=== PATIENT | female | born 1945 | race Caucasian/White ===

== ENCOUNTER → 2019-04-15 05:00 | Outpatient (REF) | payer MEDICARE, SELFPAY ==
[2019-04-15 07:46] LABS: Hematocrit 41.6 % (37-47); Hemoglobin 13.3 g/dl (12.0-15.0); Mean Corpuscular Hgb 29.8 pg (27.0-32.0); Mean Corpuscular Volume 93.3 fL (81-99); Mean Platelet Vol. 9.6 fl (6.2-12.0); Platelet Count 138 K/mm3 (150-450); RBC Distribution Width CV 12.9 % (11.6-14.6); RBC Distribution Width SD 44.2 fl (35.1-43.9); Red Blood Count 4.46 M/mm3 (4.2-5.4); White Blood Count 4.8 K/mm3 (4.4-11.0)
[2019-04-15 07:52] LABS: Scan Indicated on CBC? Y/N NO
[2019-04-15 07:58] LABS: AST(SGOT) 13 U/L (15-37); Alanine Aminotransfer ALT/SGPT 12 U/L (13-56); Albumin, Serum 2.6 g/dL (3.2-5.0); Alkaline Phosphatase 44 U/L (45-117); Bilirubin, Direct 0.06 mg/dL (0.00-0.30); Protein, Total 5.6 g/dL (6.4-8.2)
[2019-04-15 08:18] LABS: Valproic Acid (Depakene) Level 50 ug/mL (50-100)
== END ==
LOC: OLS.WHLTSB 05:00
DX: F03.90 Unspecified dementia, unspecified severity, without behavioral disturbance, psychotic disturbance, mood disturbance, and anxiety (principal)
CPT/HCPCS: 36415; 80076; 80164; 85027

== ENCOUNTER → 2019-05-13 | Outpatient (REF) | payer MEDICARE, SELFPAY ==
[2019-05-13 08:13] LABS: Absolute Lymphocyte Count 1.18 X10^3/ul (0.83-4.51); Absolute Neutrophil Count 5.4 X10^3/uL (2.0-7.7); Eosinophil# 0.01 X10^3/uL; Eosinophils% 0.1 % (0-5); Lymphocyte # 1.18 X10^3/ul (4.0); Lymphocyte % 15.8 % (19-41); Mean Corp Hgb Conc 32.6 g/gl (32-36); Mean Corpuscular Hgb 30.4 pg (27.0-32.0); Mean Corpuscular Volume 93.3 fL (81-99); Mean Platelet Vol. 9.9 fl (6.2-12.0); Monocyte# 0.91 X10^3/uL; Monocyte% 12.2 % (0-10); Neutrophil % 71.8 % (47-70); POSITIVE COUNT NO; POSITIVE DIFFERENTIAL NO; POSITIVE MORPHOLOGY NO; Platelet Count 162 K/mm3 (150-450); RBC Distribution Width CV 13.3 % (11.6-14.6); RBC Distribution Width SD 45.4 fl (35.1-43.9); Red Blood Count 4.61 M/mm3 (4.2-5.4); White Blood Count 7.5 K/mm3 (4.4-11.0)
[2019-05-13 08:14] LABS: Anion Gap 5 (5-15); BUN 26 mg/dL (7-18); BUN/Creat Ratio 35.5 RATIO (10-20); Calcium,Total 8.3 mg/dL (8.5-10.1); Chloride 106 mmol/L (98-107); Creatinine, Serum 0.73 mg/dL (0.55-1.02); EST Glomerular Filtration Rate 83 mL/min (>60); Est Glom Filt Rate - Afr Amer 100 mL/min (>60); Glucose 109 mg/dL (74-106); Potassium 3.8 mmol/L (3.5-5.1); Sodium Level 144 mmol/L (136-145)
== END | disposition home or self-care (01) ==
LOC: OLS.WHLTSB 06:51
PROVIDERS: Visit Provider Family Medicine
DX: R11.2 Nausea with vomiting, unspecified (principal)
CPT/HCPCS: 36415; 80048; 85025

== ENCOUNTER → 2019-05-14 | Outpatient (REF) | payer MEDICARE, OTHER, SELFPAY ==
[2019-05-15 09:08] LABS: Color, Urine Yellow (Yellow); Glucose, Dipstick Normal (Normal); Ketone-Dipstick 5 mg/dl (Negative); Leukocyte Esterase-Dipstick 25 /ul (Negative); Nitrite-Dipstick Negative (Negative); Occult Blood-Urine Negative /ul (Negative); Protein-Dipstick 15 mg/dl (Negative); Urine Bilirubin Dipstick Negative (Negative); Urine Clarity Sl. Cloudy (Clear); Urine Urobilinogen Normal (Normal)
== END | disposition home or self-care (01) ==
LOC: OLS.WHLTSB 09:44
PROVIDERS: Visit Provider Family Medicine
DX: R50.9 Fever, unspecified (principal)
CPT/HCPCS: 81002; 87086; 87088

== ENCOUNTER → 2019-07-16 05:00 | Outpatient (REF) | payer MEDICARE, OTHER, SELFPAY ==
[2019-07-16 08:44] LABS: Valproic Acid (Depakene) Level 61 ug/mL (50-100)
== END ==
LOC: OLS.WHLTSB 05:00
PROVIDERS: Visit Provider Family Medicine
DX: R19.7 Diarrhea, unspecified (principal); F02.81 Dementia in other diseases classified elsewhere, unspecified severity, with behavioral disturbance; R11.0 Nausea; R11.2 Nausea with vomiting, unspecified; K30 Functional dyspepsia; K59.00 Constipation, unspecified
CPT/HCPCS: 36415; 80164

== ENCOUNTER 2019-07-31 00:53 | Emergency (ER) | payer MEDICARE, OTHER, SELFPAY ==
[2019-07-31 01:00] VITALS: BP 145/70; PULSE 68; RESP 18; TEMP 36.6; O2SAT 97; BMI 24.7
--- NOTE | 2019-07-31 01:09 | ED.RN ---
PT WAS IN ROOM WITH TWO RNS. BOTH NURSES WERE ATTEMPTING TO COMFORT PATIENT, REORIENT AND REDIRECT PATIENT. PT INCREASINGLY AGITATED AND NOT FOLLOWING COMMANDS FOR SAFETY. PT CONTINUING TO ATTEMPT TO WALK OUT OF ROOM AND WILL NOT STAY IN BED. PT DISORIENTED AND NOT ANSWERING ANY QUESTIONS APPROPRIATELY. MD AWARE AND VERBAL ORDER TO PLACE SOFT RESTRAINT ON PATIENT
--- NOTE | 2019-07-31 01:34 | CT_ITS ---
HISTORY: FALL, FACIAL LACERATIONS EXAMINATION: CT Maxillofacial W/O Contrast TECHNIQUE: Helically acquired images were obtained of the facial bones. A radiation dose optimization technique was used for this scan. IV Contrast dosage and agent: None. COMPARISON: None FINDINGS: No fracture or acute osseous abnormality. No mandibular dislocation. Intact nasal bones, orbits, and zygomas. The globes are intact. Retrobulbar structures are unremarkable. No soft tissue hematoma is seen. No suspicious gas collections. CT/Sinus/Facial Bone IMPRESSION: Negative exam. No fracture or significant findings. Individualized dose optimization techniques were used for this CT. at 0316 Reported and signed by: Rangel Jones MD Electronically Signed: Rangel Jones, at 3:15 EDT Tel , Service support ,
--- NOTE | 2019-07-31 01:34 | CT_ITS ---
HISTORY: FALL, FACIAL LACERATIONS EXAMINATION: CT Head or Brain W/O IV Contrast TECHNIQUE: Multiple axial images were obtained of the head without intravenous contrast. A radiation dose optimization technique was used for this scan. IV Contrast dosage and agent: None. COMPARISON: None FINDINGS: Age-appropriate cerebral atrophy. No hydrocephalus. Focal benign ossification of the anterior falx cerebral. Bilateral physiologic basal ganglia calcification. No intracranial mass, hemorrhage, or acute intracranial abnormality. Vertebrobasilar atherosclerotic calcifications and otherwise negative posterior fossa. No suspicious extra-axial fluid collection. The calvarium appears intact. Hyperostosis frontalis interna. As visualized, the mastoids are clear. CT/Brain/Head without Contrast IMPRESSION: 1. Negative for intracranial hemorrhage or acute intracranial hemorrhage or abnormality. 2. Age-appropriate cerebral atrophy. Individualized dose optimization techniques were used for this CT. at 0306 Reported and signed by: Rangel Jones MD Electronically Signed: Rangel Jones, at 3:05 EDT Tel , Service support ,
--- NOTE | 2019-07-31 01:34 | CT_ITS ---
HISTORY: FALL, FACIAL LACERATIONS EXAMINATION: CT Spine Cervical W/O Contrast TECHNIQUE: Helically acquired images were obtained of the cervical spine. 2D reformatted images were reviewed. A radiation dose optimization technique was used for this scan. IV Contrast dosage and agent: None. COMPARISON: None FINDINGS: Mild straightening of the cervical spine. Cervical vertebra are normal in height. No fracture or acute osseous abnormality. Intact dens and craniocervical junction. Multilevel degenerative changes. C1-C2 osteoarthritis. C5-6 marked disc space narrowing accompanied by hypertrophic endplate spurring both anteriorly and posteriorly. Acquired spinal stenosis at this level with central canal narrowing related to posterior disc-osteophyte complex. C5-6 bilateral uncovertebral spurring, as well. The posterior elements. Intact. No spondylolisthesis. Benign nuchal calcification at the C5-[address]/Spine Cervical without Contras IMPRESSION: 1. Negative for fracture or acute osseous abnormality. 2. Multilevel degenerative changes with C5-6 level acquired spinal stenosis secondary to degenerative spondylosis. Individualized dose optimization techniques were used for this CT. at 0312 Reported and signed by: Rangel Jones MD Electronically Signed: Rangel Jones, at 3:11 EDT Tel , Service support ,
--- NOTE | 2019-07-31 01:36 | ED.DCSUM_ITS ---
History of Present Illness Chief Complaint: Fall Narrative: Patient is a 73-year-old DNR comfort care only patient who presents after a fall. She is from [facility]. Further history is unable to be obtained due to the patient's dementia she is unable to really provide any history. Past Medical History - Allergies and Home Meds Allergies/Adverse Reactions: Allergies No Known Allergies Allergy (Verified 07/31/19 01:13) Primary Care Physician: Vasu Oritz MD [Primary Care Provider] - Past Medical History: - - Dementia, Smoking Status: Never smoker Review of Systems ROS: Unable to Obtain Physical Exam Vital Signs/Narrative: Vital Signs Temp Pulse Resp BP Pulse Ox 07/31/19 01:00 97.9 F 68 18 145/70 H 97 General: Well nourished Head: - - Abrasions to the nasal bridge with soft tissue swelling, no midface instability, Eyes: Perrl, EOMI ENT: Moist mucous membranes, - - No nasal septal hematoma, 1 cm upper lip laceration which does not involve the vermilion border Neck: Supple Cardiovascular: Regular rate, Regular rhythm Respiratory: No distress, CTA bilaterally, Chest nontender Abdomen: Soft, Nontender, Nondistended - Patient is alert but oriented x0 she does not appear to have focal or lateralizing neurological deficits Extremities: - - Active full range of motion x4 extremities no deformities no tenderness Skin: Normal color Neurological: Alert, - Diagnostic/Tx/Re-eval Impressions Brain CT 07/31/19 01:34 IMPRESSION: 1. Negative for intracranial hemorrhage or acute intracranial hemorrhage or abnormality. 2. Age-appropriate cerebral atrophy. Individualized dose optimization techniques were used for this CT. at 0306 Reported and signed by: Rangel Jones MD Electronically Signed: Rangel Jones, at 3:05 EDT Tel , Service support , Cervical Spine CT 07/31/19 01:34 IMPRESSION: 1. Negative for fracture or acute osseous abnormality. 2. Multilevel degenerative changes with C5-6 level acquired spinal stenosis secondary to degenerative spondylosis. Individualized dose optimization techniques were used for this CT. at 0312 Reported and signed by: Rangel Jones MD Electronically Signed: Rangel Jones, at 3:11 EDT Tel , Service support , Facial/Sinus 07/31/19 01:34 IMPRESSION: Negative exam. No fracture or significant findings. Individualized dose optimization techniques were used for this CT. at 0316 Reported and signed by: Rangel Jones MD Electronically Signed: Rangel Jones, at 3:15 EDT Tel , Service support , 07/31/19 01:34 Brain/Head without Contrast [CT] Stat CT Facial [Sinus/Facial Bone] [CT] Stat Spine Cervical without Contras [CT] Stat - Medical Decision Making CTs were obtained of the head, facial bones, cervical spine. No acute fractures or intracranial hemorrhage. Patient did have some agitation and was trying to get out of bed so was placed in soft restraints. However she was still unable to hold still for CTs. verbal redirection, other supportive measures such as turning on lights in the room were attempted but unsuccessful. She was initially given intramuscular Ativan but was still not lying still so was given intramuscular Haldol so that we could obtain imaging. Will be discharged back to her nursing facility. ED Disposition - Plan for ED Patient: Disposition: Home or Assisted Living Diagnosis: Fall, Facial contusion, Lip laceration Instructions: FALL, Uncertain Cause, LACERATION, Lip/Mouth, FACIAL CONTUSION, No Wakeup Referrals: Vasu Ortiz MD [Primary Care Provider] -
[2019-07-31] MEDS: LORazepam 2 MG/ML Syringe 1 MG IM (01:54)
[2019-07-31] MEDS: Haloperidol Lactate 5 MG/ML Vial 2 MG IM (02:19)
[2019-07-31 03:09] VITALS: BP 141/72
--- NOTE | 2019-07-31 03:43 | ED.RN ---
GAVE REPORT TO ARVIND, NURSE AT [facility].
[2019-07-31 04:28] VITALS: BP 141/79; PULSE 67; RESP 12; O2SAT 95
== END 2019-07-31 04:15 | disposition home or self-care (01) ==
PROVIDERS: Emergency Provider Emergency Medicine
DX: S01.511A Laceration without foreign body of lip, initial encounter (principal); F03.90 Unspecified dementia, unspecified severity, without behavioral disturbance, psychotic disturbance, mood disturbance, and anxiety; Z66 Do not resuscitate; W18.30XA Fall on same level, unspecified, initial encounter; Y93.89 Activity, other specified; Y92.129 Unspecified place in nursing home as the place of occurrence of the external cause; Y99.8 Other external cause status
CPT/HCPCS: 70450; 70486; 72125; 96372; 99284

== ENCOUNTER → 2019-08-01 19:22 | Outpatient (REF) | payer MEDICARE, OTHER, SELFPAY ==
[2019-07-31 01:00] VITALS: BMI 24.7
[2019-08-02 07:08] LABS: Color, Urine Yellow (Yellow); Glucose, Dipstick Normal (Normal); Ketone-Dipstick 15 mg/dl (Negative); Leukocyte Esterase-Dipstick 500 /ul (Negative); Nitrite-Dipstick Positive (Negative); Occult Blood-Urine 250 /ul (Negative); Protein-Dipstick 100 mg/dl (Negative); Urine Bilirubin Dipstick Negative (Negative); Urine Clarity Sl. Cloudy (Clear); Urine Urobilinogen Normal (Normal)
== END ==
LOC: OLS.WHLTSB 19:22
PROVIDERS: Visit Provider Family Medicine
DX: N39.0 Urinary tract infection, site not specified (principal); F02.81 Dementia in other diseases classified elsewhere, unspecified severity, with behavioral disturbance; R19.7 Diarrhea, unspecified; R11.0 Nausea; R11.2 Nausea with vomiting, unspecified
CPT/HCPCS: 81002; 87077; 87086; 87088; 87186

== ENCOUNTER → 2019-08-06 05:00 | Outpatient (REF) | payer MEDICARE, OTHER, SELFPAY ==
[2019-07-31 01:00] VITALS: BMI 24.7
[2019-08-06 08:55] LABS: Valproic Acid (Depakene) Level 62 ug/mL (50-100)
== END ==
LOC: OLS.WHLTSB 05:00
PROVIDERS: Visit Provider Family Medicine
DX: N39.0 Urinary tract infection, site not specified (principal); F02.81 Dementia in other diseases classified elsewhere, unspecified severity, with behavioral disturbance; R19.7 Diarrhea, unspecified; R11.0 Nausea; R11.2 Nausea with vomiting, unspecified; F41.9 Anxiety disorder, unspecified
CPT/HCPCS: 36415; 80164

== ENCOUNTER → 2019-08-14 02:00 | Outpatient (REF) | payer MEDICARE, SELFPAY ==
[2019-07-31 01:00] VITALS: BMI 24.7
[2019-08-14 08:27] LABS: Color, Urine Yellow (Yellow); Glucose, Dipstick Normal (Normal); Ketone-Dipstick Negative (Negative); Leukocyte Esterase-Dipstick 100 /ul (Negative); Nitrite-Dipstick Negative (Negative); Occult Blood-Urine Negative /ul (Negative); Protein-Dipstick Negative (Negative); Specific Gravity, Urine 1.025 (1.002-1.030); Urine Bilirubin Dipstick Negative (Negative); Urine Clarity Sl. Cloudy (Clear); Urine Urobilinogen Normal (Normal)
== END ==
LOC: OLS.WHLTSB 02:00
PROVIDERS: Visit Provider Family Medicine
DX: N39.0 Urinary tract infection, site not specified (principal); F02.81 Dementia in other diseases classified elsewhere, unspecified severity, with behavioral disturbance; R19.7 Diarrhea, unspecified; R11.0 Nausea; R11.2 Nausea with vomiting, unspecified
CPT/HCPCS: 81002; 87086; 87088

== ENCOUNTER → 2019-09-15 17:30 | Outpatient (REF) | payer SELFPAY ==
[2019-09-16 07:34] LABS: Color, Urine Yellow (Yellow); Glucose, Dipstick Normal (Normal); Ketone-Dipstick 15 mg/dl (Negative); Leukocyte Esterase-Dipstick 500 /ul (Negative); Nitrite-Dipstick Positive (Negative); Occult Blood-Urine 150 /ul (Negative); Protein-Dipstick 100 mg/dl (Negative); Specific Gravity, Urine 1.025 (1.002-1.030); Urine Bilirubin Dipstick Negative (Negative); Urine Clarity Cloudy (Clear); Urine Urobilinogen Normal (Normal)
== END ==
LOC: OLS.WHLTSB 17:30
PROVIDERS: Visit Provider Family Medicine
DX: R30.0 Dysuria (principal); F02.81 Dementia in other diseases classified elsewhere, unspecified severity, with behavioral disturbance; G30.9 Alzheimer's disease, unspecified; M62.81 Muscle weakness (generalized); Z74.1 Need for assistance with personal care
CPT/HCPCS: 81002; 87077; 87086; 87088; 87186